=== PATIENT | female | born 1935 | race Caucasian/White ===

== ENCOUNTER 2017-07-26 14:45 | Emergency (ER) | payer MEDICARE, BC ==
[~2017-07-26] VITALS: Ht 165.1 cm; Wt 43.8 kg
[~2017-07-26 14:45] MED LIST: ACET325 PO; LEVO75TA3 PO; LORTA5 PO
[2017-07-26 14:54] VITALS: BP 178/86; PULSE 63; RESP 16; TEMP 97.5; O2SAT 97
--- NOTE | 2017-07-26 15:12 | PD ---
HPI Chief Complaint: Respiratory Symptoms Time Seen by Provider: 15:07 Travel History International Travel<30 days: No Contact w/Intl Traveler<30days: No Traveled to known affect area: No History of Present Illness HPI Patient presents accompanied by friends who report severe dementia. [facility] reported increased cough and hypoxia. Patient is poor historian. Positive sick contacts. Friends have little information. History of hypothyroidism and osteoporosis and hypertension. PFSH Past Medical History Cancer: No Cardiovascular Problems: No Diabetes: No Diminished Hearing: No Endocrine: No Genitourinary: No Hepatitis: No Hiatal Hernia: No Immune Disorder: No Musculoskeletal: No Neurologic: Yes ([place]) Psychiatric: No Reproductive: No Respiratory: No Thyroid Disease: Yes ?: Not Menopausal: Yes Past Surgical History Body Medical Devices: DENTAL IMPLANT Endocrine Surgery: Yes (THYROID REMOVED) Oral Surgery: Yes (TONSILLECTOMY) Pacemaker: No Thoracic Surgery: Yes (BREAST IMPLANTS AND REMOVAL) Tonsillectomy: Yes Social History Alcohol Use: No Tobacco Use: Yes (1 PPD) Substance Use: No Allergies-Medications (Allergen,Severity, Reaction): Coded Allergies: codeine (Unverified Allergy, Severe, NAUSEA, 07/26/17) aspirin (Verified Allergy, Unknown, 07/26/17) baclofen (Verified Allergy, Unknown, 07/26/17) Reported Meds & Prescriptions Reported Meds & Active Scripts Active Reported Memantine 5 Mg Tab 5 Mg PO DAILY Meloxicam 7.5 Mg Tab 7.5 Mg PO DAILY Levothyroxine (Levothyroxine Sodium) 75 Mcg Tab 75 Mcg PO DAILY Amlodipine (Amlodipine Besylate) 2.5 Mg Tab 2.5 Mg PO DAILY Alendronate (Alendronate Sodium) 70 Mg Tab 70 Mg PO Q7D Sertraline (Sertraline HCl) 25 Mg Tab 25 Mg PO DAILY Review of Systems ROS Limitations: Poor Historian General / Constitutional: No: Fever Eyes: No: Visual changes HENT: No: Headaches Cardiovascular: No: Chest Pain or Discomfort Respiratory: Positive: Cough Gastrointestinal: No: Abdominal Pain Genitourinary: No: Dysuria Musculoskeletal: No: Pain Skin: No Rash Neurologic: No: Weakness Psychiatric: No: Depression Endocrine: No: Polydipsia Hematologic/Lymphatic: No: Easy Bruising Physical Exam Narrative GENERAL: Well-nourished, well-developed patient. SKIN: Focused skin assessment warm/dry. HEAD: Normocephalic. EYES: No scleral icterus. No injection or drainage. NECK: Supple, trachea midline. No JVD or lymphadenopathy. CARDIOVASCULAR: Regular rate and rhythm without murmurs, gallops, or rubs. RESPIRATORY: Breath sounds in all garner but mildly decreased GASTROINTESTINAL: Abdomen soft, non-tender, nondistended. MUSCULOSKELETAL: No cyanosis, or edema. BACK: Nontender without obvious deformity. No CVA tenderness. Data Data Last Documented VS Vital Signs Date Time Temp Pulse Resp B/P (MAP) Pulse Ox O2 Delivery O2 Flow Rate FiO2 07/26/17 15:09 98 Room Air 07/26/17 14:54 97.5 63 16 178/86 (116) Orders Orders Complete Blood Count With Diff (07/26/17 15:07) Chest, Single Ap (07/26/17 ) Labs Laboratory Tests Test 07/26/17 15:14 White Blood Count 6.1 TH/MM3 Red Blood Count 4.21 MIL/MM3 Hemoglobin 12.8 GM/DL Hematocrit 38.5 % Mean Corpuscular Volume 91.5 FL Mean Corpuscular Hemoglobin 30.3 PG Mean Corpuscular Hemoglobin Concent 33.2 % Red Cell Distribution Width 13.2 % Platelet Count 185 TH/MM3 Mean Platelet Volume 7.2 FL Neutrophils (%) (Auto) 60.4 % Lymphocytes (%) (Auto) 29.5 % Monocytes (%) (Auto) 8.1 % Eosinophils (%) (Auto) 1.4 % Basophils (%) (Auto) 0.6 % Neutrophils # (Auto) 3.7 TH/MM3 Lymphocytes # (Auto) 1.8 TH/MM3 Monocytes # (Auto) 0.5 TH/MM3 Eosinophils # (Auto) 0.1 TH/MM3 Basophils # (Auto) 0.0 TH/MM3 CBC Comment DIFF FINAL Differential Comment MDM Medical Decision Making Medical Screen Exam Complete: Yes Emergency Medical Condition: Yes Differential Diagnosis Upper respiratory infection, cough, viral infection, pneumonia Narrative Course Assessment and plan discussed with friends at bedside. CBC within normal limits. Chest x-ray showed no acute cardiopulmonary process. Diagnosis Primary Impression: Cough Patient Instructions: General Instructions Additional Instructions: Rest fluids and Motrin, encouraged treatment of symptoms, follow-up with PCP, return to emergency with any onset of new symptoms. Med/Other Pt SpecificInfo: Prescription(s) given Scripts Benzonatate (Tessalon Perles) 100 Mg Cap 100 MG PO TID Y for COUGH for 10 Days, CAP 0 Refills Prov: Dirk Dai MD 07/26/17 Disposition: 07 AGAINST MEDICAL ADVICE Dirk Dai MD Jul 26, 2017 15:12
[2017-07-26 15:22] LABS: AUTOMATED NEUTROPHIL # 3.7 TH/MM3 (1.8-7.7); BASOPHIL % 0.6 % (0.0-2.0); EOSINOPHIL # 0.1 TH/MM3 (0-0.4); EOSINOPHIL % 1.4 % (0.0-4.0); HEMATOCRIT 38.5 % (35.0-46.0); HEMOGLOBIN 12.8 GM/DL (11.6-15.3); LYMPH % 29.5 % (9.0-44.0); LYMPHOCYTE # 1.8 TH/MM3 (1.0-4.8); MEAN CELL VOLUME 91.5 FL (80.0-100.0); MEAN CORPUSCULAR HEMOGLOBIN 30.3 PG (27.0-34.0); MEAN CORPUSCULAR HGB CONC 33.2 % (32.0-36.0); MEAN PLATELET VOLUME 7.2 FL (7.0-11.0); MONO % 8.1 % (0.0-8.0); MONOCYTE # 0.5 TH/MM3 (0-0.9); NEUT % 60.4 % (16.0-70.0); PLATELET COUNT 185 TH/MM3 (150-450); RED BLOOD COUNT 4.21 MIL/MM3 (4.00-5.30); RED CELL DISTRIBUTION WIDTH 13.2 % (11.6-17.2); WHITE BLOOD COUNT 6.1 TH/MM3 (4.0-11.0)
[2017-07-26] MEDS ORDERED: ALEN1TAB48 PO (15:30)
[2017-07-26] MEDS ORDERED: SERT25TA83 PO (15:30)
[2017-07-26] MEDS ORDERED: MELO7.5T27 PO (15:30)
[2017-07-26] MEDS ORDERED: AMLO2.5T PO (15:30)
[2017-07-26] MEDS ORDERED: MEMA1TAB PO (15:30)
[2017-07-26] MEDS ORDERED: LEVO75TA3 PO (15:30)
[2017-07-26 15:50] VITALS: BP 171/98; PULSE 63; RESP 20; O2SAT 97
--- NOTE | 2017-07-26 16:07 | RADRPT ---
EXAM DATE/TIME: 07/26/2017 15:15 [facility] COMPARISON: No previous studies available for comparison. INDICATIONS : Cough and shortness of breath. MEDICAL HISTORY : None. SURGICAL HISTORY : None. ENCOUNTER: Initial ACUITY: 4 - 6 days PAIN SCORE: 0/10 LOCATION: Left chest FINDINGS: The cardiac silhouette is enlarged in transverse diameter. Moderate scoliotic deformity is present to the left with a rotatory component with the apex at he 12. The background interstitium is prominent though this is likely chronic in nature. There is prominence of the aortic knob is with calcification characteristic of atherosclerotic vascular disease. The lungs are free of acute parenchymal opacity. No effusions are identified. CONCLUSION: 1. Cardiomegaly. No acute pulmonary disease. Brent Goff MD on July 26, 2017 at 16:05 Board Certified Radiologist. This report was verified electronically.
[2017-07-26] MEDS ORDERED: BENZ100 PO (16:15)
[2017-07-26] MEDS ORDERED: cloNIDine HCL 0.1 MG TAB PO ONE (16:30)
[2017-07-26 16:31] VITALS: BP 185/95; PULSE 63; RESP 18; O2SAT 98
[2017-07-26 17:09] VITALS: BP 165/83
== END 2017-07-26 17:10 | disposition left against medical advice (07) ==
LOC: PHED 14:45
DX: R05 Cough (principal); R09.02 Hypoxemia; F03.90 Unspecified dementia, unspecified severity, without behavioral disturbance, psychotic disturbance, mood disturbance, and anxiety; E03.9 Hypothyroidism, unspecified; I10 Essential (primary) hypertension; M81.0 Age-related osteoporosis without current pathological fracture; F17.200 Nicotine dependence, unspecified, uncomplicated
CPT/HCPCS: 71045; 85025; 99284

== ENCOUNTER 2017-10-04 11:45 | Emergency (ER) | payer MEDICARE, BC ==
[~2017-10-04] VITALS: Ht 152.4 cm; Wt 50.0 kg
[~2017-10-04 11:45] MED LIST changes: -ACET325 PO; +ALEN1TAB48 PO; +AMLO2.5T PO; +BENZ100 PO; -LORTA5 PO; +MELO7.5T27 PO; +MEMA1TAB PO; +SERT25TA83 PO
[2017-10-04 11:51] VITALS: BP 163/74; PULSE 69; RESP 21; TEMP 98.1
--- NOTE | 2017-10-04 11:56 | PD ---
HPI Chief Complaint: frequent falls Time Seen by Provider: 11:56 Travel History International Travel<30 days: No Contact w/Intl Traveler<30days: No Traveled to known affect area: No History of Present Illness HPI 81-year-old female with history of dementia, hypertension, presents to emergency department from her residential facility for evaluation of multiple falls over the last 2-3 days. They report that the patient's legs seem to be giving out. They noticed her left leg dragging today so they contacted [facility] who brought her to the emergency department. Patient reports absolutely no pain. She states that she is following a few times but not too many. Her family says that they've noticed more falling but have not noticed any deficit on the left. Falls of all the unwitnessed. There are no other symptoms reported this time. PFSH Past Medical History Cancer: No Cardiovascular Problems: No Diabetes: No Diminished Hearing: No Endocrine: No Genitourinary: No Hepatitis: No Hiatal Hernia: No Hypertension: Yes Immune Disorder: No Musculoskeletal: No Neurologic: Yes ([place]) Psychiatric: No Reproductive: No Respiratory: No Thyroid Disease: Yes Menopausal: Yes Past Surgical History Body Medical Devices: DENTAL IMPLANT Endocrine Surgery: Yes (THYROID REMOVED) Oral Surgery: Yes (TONSILLECTOMY) Pacemaker: No Thoracic Surgery: Yes (BREAST IMPLANTS AND REMOVAL) Tonsillectomy: Yes Other Surgery: Yes Social History Alcohol Use: No Tobacco Use: Yes (1 PPD) Substance Use: No Allergies-Medications (Allergen,Severity, Reaction): Coded Allergies: codeine (Unverified Allergy, Severe, NAUSEA, 10/04/17) aspirin (Verified Allergy, Unknown, 10/04/17) baclofen (Verified Allergy, Unknown, 10/04/17) Reported Meds & Prescriptions Reported Meds & Active Scripts Active Reported Tylenol (Acetaminophen) 325 Mg Tab 650 Mg PO Q6H PRN Omeprazole 20 Mg Tab 20 Mg PO DAILY PRN Donepezil 10 Mg Tab 10 Mg PO DAILY Memantine 5 Mg Tab 5 Mg PO DAILY Meloxicam 7.5 Mg Tab 7.5 Mg PO DAILY Levothyroxine (Levothyroxine Sodium) 75 Mcg Tab 75 Mcg PO DAILY Amlodipine (Amlodipine Besylate) 2.5 Mg Tab 2.5 Mg PO DAILY Alendronate (Alendronate Sodium) 70 Mg Tab 70 Mg PO Q7D Sertraline (Sertraline HCl) 25 Mg Tab 25 Mg PO DAILY Review of Systems Except as stated in HPI: all other systems reviewed are Neg Physical Exam Narrative GENERAL: Thin elderly female patient, sitting up in bed, pleasantly confused but in no acute distress. SKIN: Focused skin assessment warm/dry. HEAD: Atraumatic. Normocephalic. EYES: Pupils equal and round. No scleral icterus. No injection or drainage. ENT: No nasal bleeding or discharge. Mucous membranes pink and moist. NECK: Trachea midline. No JVD. CARDIOVASCULAR: Regular rate and rhythm. RESPIRATORY: No accessory muscle use. Clear to auscultation. Breath sounds equal bilaterally. GASTROINTESTINAL: Abdomen soft, non-tender, nondistended. Hepatic and splenic margins not palpable. MUSCULOSKELETAL: No obvious deformities. No clubbing. No cyanosis. No edema. NEUROLOGICAL: Awake and alert. No obvious cranial nerve deficits. Motor grossly within normal limits. Normal speech. No tenderness elicited palpation PSYCHIATRIC: Appropriate mood and affect; insight and judgment normal. Data Data Last Documented VS Vital Signs Date Time Temp Pulse Resp B/P (MAP) Pulse Ox O2 Delivery O2 Flow Rate FiO2 10/04/17 11:51 98.1 69 21 163/74 (103) Orders Orders Basic Metabolic Panel (Bmp) (10/04/17 11:56) Complete Blood Count With Diff (10/04/17 11:56) Prothrombin Time / Inr (Pt) (10/04/17 11:56) Act Partial Throm Time (Ptt) (10/04/17 11:56) Urinalysis - C+S If Indicated (10/04/17 11:56) Chest, Single Ap (10/04/17 11:56) Ct Brain W/O Iv Contrast(Rout) (10/04/17 11:56) Blood Glucose (10/04/17 11:56) Ecg Monitoring (10/04/17 11:56) Iv Access Insert/Monitor (10/04/17 11:56) Oximetry (10/04/17 11:56) Sodium Chloride 0.9% Flush (Ns Flush) (10/04/17 12:00) Sodium Chlorid 0.9% 500 Ml Inj (Ns 500 M (10/04/17 12:00) Orthostatic Vital Signs (10/04/17 11:56) Pelvis, Ap Only (Routine) (10/04/17 ) Ed Discharge Order (10/04/17 14:08) Labs Laboratory Tests Test 10/04/17 12:34 10/04/17 13:29 White Blood Count 9.6 TH/MM3 Red Blood Count 4.33 MIL/MM3 Hemoglobin 13.4 GM/DL Hematocrit 39.8 % Mean Corpuscular Volume 92.0 FL Mean Corpuscular Hemoglobin 30.9 PG Mean Corpuscular Hemoglobin Concent 33.6 % Red Cell Distribution Width 14.8 % Platelet Count 251 TH/MM3 Mean Platelet Volume 8.0 FL Neutrophils (%) (Auto) 82.8 % Lymphocytes (%) (Auto) 10.6 % Monocytes (%) (Auto) 6.0 % Eosinophils (%) (Auto) 0.2 % Basophils (%) (Auto) 0.4 % Neutrophils # (Auto) 7.9 TH/MM3 Lymphocytes # (Auto) 1.0 TH/MM3 Monocytes # (Auto) 0.6 TH/MM3 Eosinophils # (Auto) 0.0 TH/MM3 Basophils # (Auto) 0.0 TH/MM3 CBC Comment DIFF FINAL Differential Comment Prothrombin Time 10.4 SEC Prothromb Time International Ratio 1.0 RATIO Activated Partial Thromboplast Time 25.4 SEC Blood Urea Nitrogen 20 MG/DL Creatinine 0.88 MG/DL Random Glucose 95 MG/DL Calcium Level 8.4 MG/DL Sodium Level 140 MEQ/L Potassium Level 4.0 MEQ/L Chloride Level 106 MEQ/L Carbon Dioxide Level 26.9 MEQ/L Anion Gap 7 MEQ/L Estimat Glomerular Filtration Rate 62 ML/MIN Urine Color LIGHT-YELLOW Urine Turbidity CLEAR Urine pH 7.0 Urine Specific [place] 1.009 Urine Protein NEG mg/dL Urine Glucose (UA) NEG mg/dL Urine Ketones NEG mg/dL Urine Occult Blood NEG Urine Nitrite NEG Urine Bilirubin NEG Urine Urobilinogen LESS THAN 2.0 MG/DL Urine Leukocyte Esterase NEG Urine RBC 1 /hpf Microscopic Urinalysis Comment CATH-CULT NOT IND MDM Medical Decision Making Medical Screen Exam Complete: Yes Emergency Medical Condition: Yes Medical Record Reviewed: Yes Differential Diagnosis Electrolyte abnormality versus intracranial hemorrhage versus UTI versus ataxia Narrative Course 81-year-old female presents to emergency department for evaluation following multiple falls. Patient is very pleasant. She is oriented to self. She moves all extremities freely without any noted deficits. She reports no pain. Laboratory Tests Test 10/04/17 12:34 10/04/17 13:29 White Blood Count 9.6 TH/MM3 Red Blood Count 4.33 MIL/MM3 Hemoglobin 13.4 GM/DL Hematocrit 39.8 % Mean Corpuscular Volume 92.0 FL Mean Corpuscular Hemoglobin 30.9 PG Mean Corpuscular Hemoglobin Concent 33.6 % Red Cell Distribution Width 14.8 % Platelet Count 251 TH/MM3 Mean Platelet Volume 8.0 FL Neutrophils (%) (Auto) 82.8 % Lymphocytes (%) (Auto) 10.6 % Monocytes (%) (Auto) 6.0 % Eosinophils (%) (Auto) 0.2 % Basophils (%) (Auto) 0.4 % Neutrophils # (Auto) 7.9 TH/MM3 Lymphocytes # (Auto) 1.0 TH/MM3 Monocytes # (Auto) 0.6 TH/MM3 Eosinophils # (Auto) 0.0 TH/MM3 Basophils # (Auto) 0.0 TH/MM3 CBC Comment DIFF FINAL Differential Comment Prothrombin Time 10.4 SEC Prothromb Time International Ratio 1.0 RATIO Activated Partial Thromboplast Time 25.4 SEC Blood Urea Nitrogen 20 MG/DL Creatinine 0.88 MG/DL Random Glucose 95 MG/DL Calcium Level 8.4 MG/DL Sodium Level 140 MEQ/L Potassium Level 4.0 MEQ/L Chloride Level 106 MEQ/L Carbon Dioxide Level 26.9 MEQ/L Anion Gap 7 MEQ/L Estimat Glomerular Filtration Rate 62 ML/MIN Urine Color LIGHT-YELLOW Urine Turbidity CLEAR Urine pH 7.0 Urine Specific [place] 1.009 Urine Protein NEG mg/dL Urine Glucose (UA) NEG mg/dL Urine Ketones NEG mg/dL Urine Occult Blood NEG Urine Nitrite NEG Urine Bilirubin NEG Urine Urobilinogen LESS THAN 2.0 MG/DL Urine Leukocyte Esterase NEG Urine RBC 1 /hpf Microscopic Urinalysis Comment CATH-CULT NOT IND Last Impressions Head CT 10/04/17 1156 Signed Impressions: Service Date/Time: Wednesday, October 04, 2017 12:37 - CONCLUSION: 1. No acute intracranial abnormality identified. The examination is stable compared to prior dated 06/22/10. Jean Paul Schroeder MD Chest X-Ray 10/04/17 1156 Signed Impressions: Service Date/Time: Wednesday, October 04, 2017 13:17 - CONCLUSION: Cardiomegaly. Stable compared to previous dated 07/26/17. Jean Paul Schroeder MD Pelvis X-Ray 10/04/17 0000 Signed Impressions: Service Date/Time: Wednesday, October 04, 2017 13:14 - CONCLUSION: No fracture visualized. Isabela Lewis MD Findings are reviewed with my attending physician and the family. Patient be transported back to her residential facility. Diagnosis Primary Impression: Frequent falls Referrals: Primary Care Physician Patient Instructions: Fall Prevention for Older Adults (DC), General Instructions Additional Instructions: Walk with assistance only Follow-up with a primary care provider Maintain adequate oral hydration Return immediately with any acute worsening symptoms Med/Other Pt SpecificInfo: No Change to Meds Disposition: 01 DISCHARGE HOME Condition: Stable Marguerite Beasley Oct 04, 2017 11:56
[2017-10-04] MEDS ORDERED: SODIUM CHLORIDE 0.9% FLUSH 10 ML FLUSH IV FLUSH PRN (12:00)
[2017-10-04] MEDS ORDERED: SODIUM CHLORID 0.9% 500 ML INJ 500 ML IV ONE (12:00)
--- NOTE | 2017-10-04 12:55 | RADRPT ---
EXAM DATE/TIME: 10/04/2017 12:37 [facility] COMPARISON: CT BRAIN W/O CONTRAST, June 22, 2010, 13:54. INDICATIONS : Multiple falls, weakness. RADIATION DOSE: 56.35 CTDIvol (mGy) MEDICAL HISTORY : Hypertension. SURGICAL HISTORY : None. ENCOUNTER: Initial ACUITY: 1 day PAIN SCALE: 0/10 LOCATION: cranial TECHNIQUE: Multiple contiguous axial images were obtained of the head. Using automated exposure control and adj ustment of the mA and/or kV according to patient size, radiation dose was kept as low as reasonably a chievable to obtain optimal diagnostic quality images. DICOM format image data is available electro nically for review and comparison. FINDINGS: CEREBRUM: The ventricles are normal for age. No evidence of midline shift, mass lesion, hemorrhage or acute in farction. No extra-axial fluid collections are seen. POSTERIOR FOSSA: The cerebellum and brainstem are intact. The 4th ventricle is midline. The cerebellopontine angle i s unremarkable. EXTRACRANIAL: The visualized portion of the orbits is intact. SKULL: The calvaria is intact. No evidence of skull fracture. CONCLUSION: 1. No acute intracranial abnormality identified. The examination is stable compared to prior dated . Jean Paul Schroeder MD on October 04, 2017 at 12:51 Board Certified Radiologist. This report was verified electronically.
[2017-10-04 13:04] LABS: AUTOMATED NEUTROPHIL # 7.9 TH/MM3 (1.8-7.7); BASOPHIL % 0.4 % (0.0-2.0); EOSINOPHIL % 0.2 % (0.0-4.0); HEMATOCRIT 39.8 % (35.0-46.0); HEMOGLOBIN 13.4 GM/DL (11.6-15.3); LYMPH % 10.6 % (9.0-44.0); MEAN CORPUSCULAR HEMOGLOBIN 30.9 PG (27.0-34.0); MEAN CORPUSCULAR HGB CONC 33.6 % (32.0-36.0); MONOCYTE # 0.6 TH/MM3 (0-0.9); NEUT % 82.8 % (16.0-70.0); PLATELET COUNT 251 TH/MM3 (150-450); RED BLOOD COUNT 4.33 MIL/MM3 (4.00-5.30); RED CELL DISTRIBUTION WIDTH 14.8 % (11.6-17.2); WHITE BLOOD COUNT 9.6 TH/MM3 (4.0-11.0)
[2017-10-04] MEDS ORDERED: TYLE325T PO (13:08)
[2017-10-04] MEDS ORDERED: OMEP20TA93 PO (13:08)
[2017-10-04] MEDS ORDERED: DONE10TA7 PO (13:08)
[2017-10-04 13:14] LABS: PROTHROMBIN TIME - PATIENT 10.4 SEC (9.8-11.6)
[2017-10-04 13:18] LABS: BICARBONATE 26.9 MEQ/L (21.0-32.0); CALCIUM 8.4 MG/DL (8.5-10.1); CREATININE 0.88 MG/DL (0.50-1.00)
--- NOTE | 2017-10-04 13:28 | RADRPT ---
EXAM DATE/TIME: 10/04/2017 13:17 [facility] COMPARISON: CHEST SINGLE AP, July 26, 2017, 15:15. INDICATIONS : Syncopal episode MEDICAL HISTORY : Hypertension. SURGICAL HISTORY : None. ENCOUNTER: Initial ACUITY: Acute PAIN SCORE: 0/10 LOCATION: chest FINDINGS: The lungs are clear. The heart is enlarged. There are scoliotic changes within the thoracic spine. Th ere degenerative changes within the shoulders bilaterally. CONCLUSION: Cardiomegaly. Stable compared to previous dated 07/26/17. Jean Paul Schroeder MD on October 04, 2017 at 13:25 Board Certified Radiologist. This report was verified electronically.
--- NOTE | 2017-10-04 13:32 | RADRPT ---
EXAM DATE/TIME: 10/04/2017 13:14 [facility] COMPARISON: No previous studies available for comparison. INDICATIONS : Pelvic pain post fall MEDICAL HISTORY : Hypertension. SURGICAL HISTORY : None. ENCOUNTER: Initial ACUITY: 1 day PAIN SCORE: 4/10 LOCATION: pelvis FINDINGS: A single frontal view of the pelvis demonstrates no evidence of fracture. The bony pelvic ring is in tact. Bony mineralization is normal. Degenerative changes seen within the lumbar spine. The soft ti ssues are intact. CONCLUSION: No fracture visualized. Isabela Lewis MD on October 04, 2017 at 13:29 Board Certified Radiologist. This report was verified electronically.
[2017-10-04 13:46] LABS: BILIRUBIN, URINE NEG (NEG); BLOOD, URINE NEG (NEG); GLUCOSE,URINE NEG (NEG); KETONE, URINE NEG (NEG); NITRITE,URINE NEG (NEG); URINE COLOR LIGHT-YELLOW (YELLW/STRAW); URINE LEUKOCYTE ESTERASE NEG (NEG)
== END 2017-10-04 16:01 | disposition home or self-care (01) ==
LOC: NEPE 11:45
DX: Z91.81 History of falling (principal); I51.7 Cardiomegaly; F03.90 Unspecified dementia, unspecified severity, without behavioral disturbance, psychotic disturbance, mood disturbance, and anxiety; I10 Essential (primary) hypertension; G24.9 Dystonia, unspecified; E07.9 Disorder of thyroid, unspecified; F17.200 Nicotine dependence, unspecified, uncomplicated; Z79.899 Other long term (current) drug therapy; Z88.5 Allergy status to narcotic agent
CPT/HCPCS: 70450; 71045; 72170; 80048; 81001; 85025; 85610; 85730; 96360; 99285; J7040

== ENCOUNTER 2017-11-13 06:10 | Inpatient (IN) | payer MEDICARE, BC ==
[~2017-11-13] VITALS: Ht 152.4 cm; Wt 53.4 kg
[2017-11-13] VITALS (8 sets, daily range): BP systolic 135–166; BP diastolic 70–93; PULSE 56–72; RESP 16–18; TEMP 98.4–99; O2SAT 94–99
[~2017-11-13 06:10] MED LIST changes: -BENZ100 PO; +DONE10TA7 PO; +OMEP20TA93 PO; +TYLE325T PO
[2017-11-13] MEDS ORDERED: SODIUM CHLORIDE 0.9% FLUSH 10 ML FLUSH IVF PRN (06:30)
[2017-11-13] MEDS ORDERED: MORPHINE SULFATE 4 MG/ML INJ IV PUSH ONE (06:30)
[2017-11-13] MEDS ORDERED: ONDANSETRON HCL 4 MG/2 ML VIAL IVP ONE (06:30)
--- NOTE | 2017-11-13 06:32 | PD ---
HPI Chief Complaint: Fall Time Seen by Provider: 06:18 Travel History International Travel<30 days: No Contact w/Intl Traveler<30days: No Traveled to known affect area: No History of Present Illness HPI The patient is a 82-year-old female who presents to the emergency department via EMS from a [facility] in [place], [place], after she was found on the floor. The patient apparently was found on the floor with a mattress on top of her according to EMS. The patient was noted to have a hematoma to the right side of the head as well as bruising to the right hip. The patient is normally ambulatory with a walker according to nursing staff, the patient is a limited historian with a history of dementia. The patient denies any headache, does complain of right hip pain with movement. She denies any previous injuries to the right hip. She denies any headache, neck pain, chest pain, shortness of breath, nausea, vomiting, or abdominal pain. She does note limited range of motion of the right hip secondary to pain. Symptoms are moderate. PFSH Past Medical History Alzheimer's Disease: Yes Cancer: No Cardiovascular Problems: No Diabetes: No Diminished Hearing: No Endocrine: No Gastrointestinal Disorders: Yes (esophogeal obstruction) Genitourinary: Yes Hepatitis: No Hiatal Hernia: No Hypertension: Yes Immune Disorder: No Implanted Vascular Access Dvce: Yes Medical other: Yes (FALLS) Musculoskeletal: No Neurologic: Yes ([place]) Psychiatric: No Reproductive: No Respiratory: No Thyroid Disease: Yes Menopausal: Yes Past Surgical History Body Medical Devices: DENTAL IMPLANT Endocrine Surgery: Yes (THYROID REMOVED) Oral Surgery: Yes (TONSILLECTOMY) Pacemaker: No Thoracic Surgery: Yes (BREAST IMPLANTS AND REMOVAL) Tonsillectomy: Yes Other Surgery: Yes Social History Alcohol Use: No Tobacco Use: No Substance Use: No Allergies-Medications (Allergen,Severity, Reaction): Coded Allergies: codeine (Unverified Allergy, Severe, NAUSEA, 11/13/17) aspirin (Verified Allergy, Unknown, 11/13/17) baclofen (Verified Allergy, Unknown, 11/13/17) Reported Meds & Prescriptions Reported Meds & Active Scripts Active Reported Tylenol (Acetaminophen) 325 Mg Tab 650 Mg PO Q6H PRN Omeprazole 20 Mg Tab 20 Mg PO DAILY PRN Donepezil 10 Mg Tab 10 Mg PO DAILY Memantine 5 Mg Tab 5 Mg PO DAILY Meloxicam 7.5 Mg Tab 7.5 Mg PO DAILY Levothyroxine (Levothyroxine Sodium) 75 Mcg Tab 75 Mcg PO DAILY Amlodipine (Amlodipine Besylate) 2.5 Mg Tab 2.5 Mg PO DAILY Alendronate (Alendronate Sodium) 70 Mg Tab 70 Mg PO Q7D Sertraline (Sertraline HCl) 25 Mg Tab 25 Mg PO DAILY Review of Systems ROS Limitations: Poor Historian, Other: (History of dementia) Except as stated in HPI: all other systems reviewed are Neg HENT: No: Headaches, Neck Pain Cardiovascular: No: Chest Pain or Discomfort Respiratory: No: Shortness of Breath Gastrointestinal: No: Nausea, Vomiting, Abdominal Pain Musculoskeletal: Positive: Limited ROM, Pain Neurologic: No: Paresthesia, Sensory Disturbance Physical Exam Exam Limitations: Poor Historian Narrative GENERAL: Awake, alert, pleasant 82-year-old female who appears her stated age and is in no acute respiratory distress. SKIN: Focused skin assessment warm/dry. HEAD: Hematoma noted to the right forehead. EYES: Pupils equal and round. 2 mm bilateral and reactive. ENT: No nasal bleeding or discharge. Upper dentures in place. Slightly dry mucous membranes. NECK: Trachea midline. No JVD. CARDIOVASCULAR: Regular rate and rhythm. No murmur appreciated. RESPIRATORY: No accessory muscle use. Clear to auscultation. Breath sounds equal bilaterally. GASTROINTESTINAL: Abdomen soft, non-tender, nondistended. No rebound tenderness. Back: No tenderness over the thoracic or lumbar vertebrae. No visible sacral decubitus ulcers. MUSCULOSKELETAL: The patient has her right hip flexed and right knee flexed at 90. She will not extend the right hip. She does have ecchymosis over the lateral right hip with tenderness upon palpation. Positive dorsalis pedal pulse. NEUROLOGICAL: Awake and alert. No obvious cranial nerve deficits. Motor grossly within normal limits. Normal speech. Patient is oriented to name and location but not the current month, year, or foxpro developer. Patient does follow simple commands. PSYCHIATRIC: Appropriate mood and affect; insight and judgment normal. Data Data Last Documented VS Vital Signs Date Time Temp Pulse Resp B/P (MAP) Pulse Ox O2 Delivery O2 Flow Rate FiO2 11/13/17 11:20 64 18 151/72 (98) 94 Nasal Cannula 2.00 11/13/17 06:16 98.4 Orders Orders Electrocardiogram (11/13/17 06:26) Complete Blood Count With Diff (11/13/17 06:26) Comprehensive Metabolic Panel (11/13/17 06:26) Prothrombin Time / Inr (Pt) (11/13/17 06:26) Act Partial Throm Time (Ptt) (11/13/17 06:26) Urinalysis - C+S If Indicated (11/13/17 06:26) Type And Screen (11/13/17 06:26) Chest, Single Ap (11/13/17 06:26) Hip, Uni(Ap&Lat) W Ap Pelvis (11/13/17 06:26) Iv Access Insert/Monitor (11/13/17 06:26) Oximetry (11/13/17:) Ice/Cold Pack (11/13/17:26) Ecg Monitoring (11/13/17 06:26) Morphine Inj (Morphine Inj) (11/13/17 06:30) Ondansetron Inj (Zofran Inj) (11/13/17 06:30) Sodium Chloride 0.9% Flush (Ns Flush) (11/13/17 06:30) Ct Brain W/O Iv Contrast(Rout) (11/13/17 ) Creatine Kinase (Cpk) (11/13/17 06:26) Ct Pelvis W/O Iv Contrast (11/13/17 ) Ed Discharge Order (11/13/17 12:01) Admit To Inpatient (11/13/17 ) Code Status (11/13/17 13:31) Vital Signs (Adult) Q4H (11/13/17 13:31) Activity Oob With Assistance (11/13/17 13:31) Diet Regular Basic (11/13/17 Lunch) Sodium Chloride 0.9% Flush (Ns Flush) (11/13/17 13:45) Sodium Chloride 0.9% Flush (Ns Flush) (11/13/17 21:00) Acetaminophen (Tylenol) (11/13/17 15:00) Ondansetron Inj (Zofran Inj) (11/13/17 15:00) Comprehensive Metabolic Panel (11/14/17 06:00) Complete Blood Count With Diff (11/14/17 06:00) Case Management Consult (11/13/17 13:31) Scd Bilateral/Knee High SUZE.BID (11/13/17 13:31) Acetaminophen (Tylenol) (11/13/17 13:45) Naloxone Inj (Narcan Inj) (11/13/17 13:45) Magnesium Hydroxide Liq (Milk Of Magnesi (11/13/17 21:00) Inpatient Certification (11/13/17 ) Amlodipine (Norvasc) (11/14/17 09:00) Donepezil (Aricept) (11/14/17 09:00) Levothyroxine (Synthroid) (11/14/17 06:00) Memantine (Namenda) (11/14/17 09:00) Sertraline (Zoloft) (11/14/17 09:00) Admit Order (Ed Use Only) (11/13/17 14:09) Pantoprazole (Protonix) (11/14/17 09:00) Labs Laboratory Tests Test 11/13/17 06:20 11/13/17 08:38 White Blood Count 11.2 TH/MM3 Red Blood Count 4.03 MIL/MM3 Hemoglobin 12.8 GM/DL Hematocrit 37.3 % Mean Corpuscular Volume 92.6 FL Mean Corpuscular Hemoglobin 31.7 PG Mean Corpuscular Hemoglobin Concent 34.3 % Red Cell Distribution Width 15.0 % Platelet Count 244 TH/MM3 Mean Platelet Volume 8.1 FL Neutrophils (%) (Auto) 88.0 % Lymphocytes (%) (Auto) 7.4 % Monocytes (%) (Auto) 3.9 % Eosinophils (%) (Auto) 0.2 % Basophils (%) (Auto) 0.5 % Neutrophils # (Auto) 9.8 TH/MM3 Lymphocytes # (Auto) 0.8 TH/MM3 Monocytes # (Auto) 0.4 TH/MM3 Eosinophils # (Auto) 0.0 TH/MM3 Basophils # (Auto) 0.1 TH/MM3 CBC Comment DIFF FINAL Differential Comment Prothrombin Time 10.8 SEC Prothromb Time International Ratio 1.1 RATIO Activated Partial Thromboplast Time 26.5 SEC Blood Urea Nitrogen 16 MG/DL Creatinine 0.77 MG/DL Random Glucose 125 MG/DL Total Protein 7.3 GM/DL Albumin 3.6 GM/DL Calcium Level 9.0 MG/DL Alkaline Phosphatase 139 U/L Aspartate Amino Transf (AST/SGOT) 24 U/L Alanine Aminotransferase (ALT/SGPT) 23 U/L Total Bilirubin 0.9 MG/DL Sodium Level 140 MEQ/L Potassium Level 3.6 MEQ/L Chloride Level 106 MEQ/L Carbon Dioxide Level 26.0 MEQ/L Anion Gap 8 MEQ/L Estimat Glomerular Filtration Rate 72 ML/MIN Total Creatine Kinase 146 U/L Urine Color YELLOW Urine Turbidity CLEAR Urine pH 6.0 Urine Specific [place] 1.018 Urine Protein TRACE mg/dL Urine Glucose (UA) NEG mg/dL Urine Ketones NEG mg/dL Urine Occult Blood TRACE Urine Nitrite NEG Urine Bilirubin NEG Urine Urobilinogen LESS THAN 2.0 MG/DL Urine Leukocyte Esterase NEG Urine RBC 10 /hpf Urine WBC 1 /hpf Urine Squamous Epithelial Cells <1 /hpf Urine Mucus FEW /lpf Microscopic Urinalysis Comment CATH-CULT NOT IND MDM Medical Decision Making Medical Screen Exam Complete: Yes Emergency Medical Condition: Yes Medical Record Reviewed: Yes Differential Diagnosis Differential diagnosis includes fracture, dislocation, hematoma, contusion, intracranial hemorrhage, mechanical fall, rhabdomyolysis, dehydration, hyponatremia. Narrative Course IV was established, labs are drawn and sent, the patient was placed on cardiac telemetry monitoring and continuous pulse oximetry monitoring. The patient was administered morphine and Zofran. X-ray of the chest, pelvis, and right hip were obtained. CT of the brain was obtained. The patient was signed out to the oncoming physician at 7 AM. Diagnosis Primary Impression: Closed avulsion fracture of greater trochanter of right femur Qualified Codes: S72.111A - Displaced fracture of greater trochanter of right femur, initial encounter for closed fracture Additional Impression: Closed head injury Qualified Codes: S09.90XA - Unspecified injury of head, initial encounter Condition: Stable Davis Montes MD Nov 13, 2017 06:32
[2017-11-13 06:55] LABS: AUTOMATED NEUTROPHIL # 9.8 TH/MM3 (1.8-7.7); BASOPHIL # 0.1 TH/MM3 (0-0.2); BASOPHIL % 0.5 % (0.0-2.0); EOSINOPHIL % 0.2 % (0.0-4.0); HEMATOCRIT 37.3 % (35.0-46.0); HEMOGLOBIN 12.8 GM/DL (11.6-15.3); LYMPH % 7.4 % (9.0-44.0); LYMPHOCYTE # 0.8 TH/MM3 (1.0-4.8); MEAN CELL VOLUME 92.6 FL (80.0-100.0); MEAN CORPUSCULAR HEMOGLOBIN 31.7 PG (27.0-34.0); MEAN CORPUSCULAR HGB CONC 34.3 % (32.0-36.0); MEAN PLATELET VOLUME 8.1 FL (7.0-11.0); MONO % 3.9 % (0.0-8.0); MONOCYTE # 0.4 TH/MM3 (0-0.9); PLATELET COUNT 244 TH/MM3 (150-450); RED BLOOD COUNT 4.03 MIL/MM3 (4.00-5.30); WHITE BLOOD COUNT 11.2 TH/MM3 (4.0-11.0)
--- NOTE | 2017-11-13 06:56 | RADRPT ---
EXAM DATE/TIME: 11/13/2017 06:41 [facility] COMPARISON: CHEST SINGLE AP, October 04, 2017, 13:17. INDICATIONS : Fall. MEDICAL HISTORY : Hypertension. SURGICAL HISTORY : None. ENCOUNTER: Initial ACUITY: 1 day PAIN SCORE: 0/10 LOCATION: Bilateral chest FINDINGS: A single view of the chest demonstrates subtle interstitial densities. Heart borderline enlarged. No pleural effusions. Degenerative changes of each shoulder.. Osseous structures are intact. Scoliosis and degenerative changes thoracic spine. CONCLUSION: Subtle interstitial densities likely chronic. Esa Clemente MD on November 13, 2017 at 6:54 Board Certified Radiologist. This report was verified electronically.
--- NOTE | 2017-11-13 06:57 | RADRPT ---
EXAM DATE/TIME: 11/13/2017 06:41 [facility] COMPARISON: No previous studies available for comparison. INDICATIONS : Right hip pain from a possible fall. MEDICAL HISTORY : Hypertension. SURGICAL HISTORY : None. ENCOUNTER: Initial ACUITY: 1 day PAIN SCORE: 8/10 LOCATION: Right hip FINDINGS: Examination of the right hip was performed with AP Pelvis. The primary and secondary trabecular germán alli of the femoral neck is intact. Mild osteoarthritis of the right hip without fracture. The acetab ulum is grossly intact. CONCLUSION: Mild osteoarthritis without fracture. Esa Clemente MD on November 13, 2017 at 6:55 Board Certified Radiologist. This report was verified electronically.
[2017-11-13 07:04] LABS: INTERNATIONAL NORMALIZED RATIO 1.1 RATIO; PROTHROMBIN TIME - PATIENT 10.8 SEC (9.8-11.6)
[2017-11-13 07:13] LABS: ALBUMIN 3.6 GM/DL (3.4-5.0); ALT (GPT) 23 U/L (10-53); AST (GOT) 24 U/L (15-37); BLOOD UREA NITROGEN 16 MG/DL (7-18); CHLORIDE 106 MEQ/L (98-107); CREATININE 0.77 MG/DL (0.50-1.00); GLOMERULAR FILTRATION RATE 72 ML/MIN (>89); GLUCOSE,RANDOM 125 MG/DL (74-106); SODIUM (NA) 140 MEQ/L (136-145)
[2017-11-13 07:16] LABS: ALKALINE PHOSPHATASE 139 U/L (45-117); TOTAL BILIRUBIN ADULT 0.9 MG/DL (0.2-1.0); TOTAL PROTEIN 7.3 GM/DL (6.4-8.2)
--- NOTE | 2017-11-13 07:43 | RADRPT ---
EXAM DATE/TIME: 11/13/2017 07:18 [facility] COMPARISON: CT BRAIN W/O CONTRAST, October 04, 2017, 12:37. INDICATIONS : Fall. RADIATION DOSE: 56.35 CTDIvol (mGy) MEDICAL HISTORY : Alzheimer's Hypertension. SURGICAL HISTORY : None. ENCOUNTER: Initial ACUITY: 1 day PAIN SCALE: 0/10 LOCATION: cranial TECHNIQUE: Multiple contiguous axial images were obtained of the head. Using automated exposure control and adj ustment of the mA and/or kV according to patient size, radiation dose was kept as low as reasonably a chievable to obtain optimal diagnostic quality images. DICOM format image data is available electro nically for review and comparison. FINDINGS: CEREBRUM: There is moderate generalized atrophy, stable from the prior study. Moderate severity periventricular white matter low attenuation remains present. The ventricles are prominent but within the range expe cted given the degree of atrophy present. No evidence of midline shift, mass lesion, hemorrhage or a cute infarction. No extra-axial fluid collections are seen. POSTERIOR FOSSA: The cerebellum and brainstem demonstrate no acute finding. The 4th ventricle is midline. The cerebe llopontine angle is unremarkable. EXTRACRANIAL: Visualized sinuses are clear. SKULL: The calvaria is intact. No evidence of skull fracture. CONCLUSION: 1. Stable noncontrast head CT. No acute intracranial abnormality is identified. 2. Stable chronic findings include generalized atrophy and chronic periventricular white matter low d ensity characteristic of chronic microvascular ischemia. Carlos Gaytan MD on November 13, 2017 at 7:39 Board Certified Radiologist. This report was verified electronically.
--- NOTE | 2017-11-13 08:40 | RADRPT ---
EXAM DATE/TIME: 11/13/2017 07:18 [facility] COMPARISON: HIP RIGHT (AP&LAT 2/3VWS) W AP PELVIS, November 13, 2017, 6:41. INDICATIONS : Fall. Pelvic pain. ORAL CONTRAST: No oral contrast ingested. RADIATION DOSE: 10.65 CTDIvol (mGy) MEDICAL HISTORY : Alzheimer's Hypertension. SURGICAL HISTORY : None. ENCOUNTER: Initial ACUITY: 1 day PAIN SCALE: 5/10 LOCATION: Bilateral pelvis TECHNIQUE: Volumetric scanning of the pelvis was performed. Using automated exposure control and adjustment of the mA and/or kV according to patient size, radiation dose was kept as low as reasonably achievable t o obtain optimal diagnostic quality images. DICOM format image data is available electronically for review and comparison. FINDINGS: There is an acute fracture involving the greater trochanter of the right proximal femur. There is a s mall focal disc bulge extending into the right neural foramen at L5-S1 which likely impinges upon the exiting right L5 nerve root. There is mild aneurysmal dilatation of the distal abdominal aorta which measures 2.7 cm AP by 2.6 cm transverse. Uncomplicated sigmoid diverticulosis is noted there is no a cute diverticulitis. The urinary bladder is unremarkable. No significant lymphadenopathy is noted. No ascites is noted. Degenerative changes and scoliosis of the lower lumbar spine are noted. CONCLUSION: 1. Acute fracture involving the greater trochanter of the right proximal femur. 2. Small focal disc bulge extending in the right neural foramen at L5-S1 which likely impinges upon t he exiting right L5 nerve root. Clinical correlation is recommended to rule out right L5 radiculopath y. 3. Mild aneurysmal dilatation of the distal abdominal aorta measuring 2.7 x 2.6 cm. 4. Uncomplicated sigmoid diverticulosis. 5. Degenerative changes and scoliosis of lower lumbar spine. Yosi Tsang MD on November 13, 2017 at 8:26 Board Certified Radiologist. This report was verified electronically.
[2017-11-13 08:52] LABS: BILIRUBIN, URINE NEG (NEG); BLOOD, URINE TRACE (NEG); GLUCOSE,URINE NEG (NEG); KETONE, URINE NEG (NEG); MUCUS URINE FEW /lpf (OCC); NITRITE,URINE NEG (NEG); SQUAMOUS EPITHELIAL CELL URINE <1 /hpf (0-5); URINE COLOR YELLOW (YELLW/STRAW); URINE LEUKOCYTE ESTERASE NEG (NEG)
--- NOTE | 2017-11-13 11:55 | PD ---
Physical Exam Date Seen by Provider: Nov 13, 2017 Time Seen by Provider: 07:00 Narrative Female who was signed out to me at change of shift by Dr. Montes. [facility] and has a history of dementia and was apparently found under her mattress with a bruised her head and right hip pain. The patient had no obvious fracture on plain x-ray of her hip however concern was that it could still be an occult fracture and a CT scan was ordered to rule out an occult fracture. That was pending at change of shift. Data Data Last Documented VS Vital Signs Date Time Temp Pulse Resp B/P (MAP) Pulse Ox O2 Delivery O2 Flow Rate FiO2 11/13/17 11:20 64 18 151/72 (98) 94 Nasal Cannula 2.00 11/13/17 06:16 98.4 Orders Orders Electrocardiogram (11/13/17 06:26) Complete Blood Count With Diff (11/13/17 06:26) Comprehensive Metabolic Panel (11/13/17 06:26) Prothrombin Time / Inr (Pt) (11/13/17:26) Act Partial Throm Time (Ptt) (11/13/17:26) Urinalysis - C+S If Indicated (11/13/17 06:26) Type And Screen (11/13/17 06:26) Chest, Single Ap (11/13/17:26) Hip, Uni(Ap&Lat) W Ap Pelvis (11/13/17 06:26) Iv Access Insert/Monitor (11/13/17 06:26) Oximetry (11/13/17 06:26) Ice/Cold Pack (11/13/17:26) Ecg Monitoring (11/13/17:26) Morphine Inj (Morphine Inj) (11/13/17 06:30) Ondansetron Inj (Zofran Inj) (11/13/17 06:30) Sodium Chloride 0.9% Flush (Ns Flush) (11/13/17 06:30) Ct Brain W/O Iv Contrast(Rout) (11/13/17 ) Creatine Kinase (Cpk) (11/13/17 06:26) Ct Pelvis W/O Iv Contrast (11/13/17 ) Labs Laboratory Tests Test 11/13/17 06:20 11/13/17 08:38 White Blood Count 11.2 TH/MM3 Red Blood Count 4.03 MIL/MM3 Hemoglobin 12.8 GM/DL Hematocrit 37.3 % Mean Corpuscular Volume 92.6 FL Mean Corpuscular Hemoglobin 31.7 PG Mean Corpuscular Hemoglobin Concent 34.3 % Red Cell Distribution Width 15.0 % Platelet Count 244 TH/MM3 Mean Platelet Volume 8.1 FL Neutrophils (%) (Auto) 88.0 % Lymphocytes (%) (Auto) 7.4 % Monocytes (%) (Auto) 3.9 % Eosinophils (%) (Auto) 0.2 % Basophils (%) (Auto) 0.5 % Neutrophils # (Auto) 9.8 TH/MM3 Lymphocytes # (Auto) 0.8 TH/MM3 Monocytes # (Auto) 0.4 TH/MM3 Eosinophils # (Auto) 0.0 TH/MM3 Basophils # (Auto) 0.1 TH/MM3 CBC Comment DIFF FINAL Differential Comment Prothrombin Time 10.8 SEC Prothromb Time International Ratio 1.1 RATIO Activated Partial Thromboplast Time 26.5 SEC Blood Urea Nitrogen 16 MG/DL Creatinine 0.77 MG/DL Random Glucose 125 MG/DL Total Protein 7.3 GM/DL Albumin 3.6 GM/DL Calcium Level 9.0 MG/DL Alkaline Phosphatase 139 U/L Aspartate Amino Transf (AST/SGOT) 24 U/L Alanine Aminotransferase (ALT/SGPT) 23 U/L Total Bilirubin 0.9 MG/DL Sodium Level 140 MEQ/L Potassium Level 3.6 MEQ/L Chloride Level 106 MEQ/L Carbon Dioxide Level 26.0 MEQ/L Anion Gap 8 MEQ/L Estimat Glomerular Filtration Rate 72 ML/MIN Total Creatine Kinase 146 U/L Urine Color YELLOW Urine Turbidity CLEAR Urine pH 6.0 Urine Specific [place] 1.018 Urine Protein TRACE mg/dL Urine Glucose (UA) NEG mg/dL Urine Ketones NEG mg/dL Urine Occult Blood TRACE Urine Nitrite NEG Urine Bilirubin NEG Urine Urobilinogen LESS THAN 2.0 MG/DL Urine Leukocyte Esterase NEG Urine RBC 10 /hpf Urine WBC 1 /hpf Urine Squamous Epithelial Cells <1 /hpf Urine Mucus FEW /lpf Microscopic Urinalysis Comment CATH-CULT NOT IND MDM Medical Record Reviewed: Yes Supervised Visit with EVIE: No Differential Diagnosis Hip fracture versus UTI versus intracranial injury Narrative Course 82-year-old with a history of dementia found in [facility]. Patient had a bruise to her forehead. Patient also had pain in her right hip. X-ray showed no obvious fracture and a CT was ordered to rule out occult fracture. There is a avulsion fracture of the right greater trochanter with no evidence of unstable fracture. CT brain is negative for acute process. Urinalysis shows no evidence of UTI. She will be [facility] back to the [facility]. Diagnosis Primary Impression: Closed avulsion fracture of greater trochanter of right femur Additional Impression: Closed head injury Additional Instruction: Ice to right hip 2-3 times daily 2 days then moist heat. Follow-up with orthopedic as an outpatient. Disposition: 01 DISCHARGE HOME Condition: Stable Bart Jeronimo MD Nov 13, 2017 11:55
--- NOTE | 2017-11-13 13:34 | HHI.HP ---
[facility] Service [facility] Primary Care Physician Unknown Admission Diagnosis Diagnoses: (1) Closed avulsion fracture of greater trochanter of right femur (2) Closed head injury Chief Complaint: AMS Travel History International Travel<30 Days: No Contact w/Intl Traveler <30 Da: No Traveled to Known Affected Are: No History of Present Illness Due to patient dementia, although pleasantly confused, she is unable to provide any history, therefore the history is obtained from the EMR review below: "The patient is a 82-year-old female who presents to the emergency department via EMS from a retirement in [place], [place], after she was found on the floor. The patient apparently was found on the floor with a mattress on top of her according to EMS. The patient was noted to have a hematoma to the right side of the head as well as bruising to the right hip. The patient is normally ambulatory with a walker according to nursing staff, the patient is a limited historian with a history of dementia. The patient denies any headache, does complain of right hip pain with movement. She denies any previous injuries to the right hip. She denies any headache, neck pain, chest pain, shortness of breath, nausea, vomiting, or abdominal pain. She does note limited range of motion of the right hip secondary to pain. Symptoms are moderate." Review of Systems ROS Limitations: Altered Mental Status, Poor Historian Past Family Social History Past Medical History Alzheimer's Disease: Yes Gastrointestinal Disorders: Yes (esophogeal obstruction) Genitourinary: Yes Hypertension: Yes Implanted Vascular Access Dvce: Yes Medical other: Yes (FALLS) Neurologic: Yes (DYSTONIA) Thyroid Disease: Yes Past Surgical History Body Medical Devices: DENTAL IMPLANT Endocrine Surgery: Yes (THYROID REMOVED) Oral Surgery: Yes (TONSILLECTOMY) Pacemaker: No Thoracic Surgery: Yes (BREAST IMPLANTS AND REMOVAL) Tonsillectomy: Yes Other Surgery: Yes Reported Medications Tylenol (Acetaminophen) 325 Mg Tab 650 Mg PO Q6H PRN Omeprazole 20 Mg Tab 20 Mg PO DAILY PRN Donepezil 10 Mg Tab 10 Mg PO DAILY Memantine 5 Mg Tab 5 Mg PO DAILY Meloxicam 7.5 Mg Tab 7.5 Mg PO DAILY Levothyroxine (Levothyroxine Sodium) 75 Mcg Tab 75 Mcg PO DAILY Amlodipine (Amlodipine Besylate) 2.5 Mg Tab 2.5 Mg PO DAILY Alendronate (Alendronate Sodium) 70 Mg Tab 70 Mg PO Q7D Sertraline (Sertraline HCl) 25 Mg Tab 25 Mg PO DAILY Allergies: Coded Allergies: codeine (Unverified Allergy, Severe, NAUSEA, 11/13/17) aspirin (Verified Allergy, Unknown, 11/13/17) baclofen (Verified Allergy, Unknown, 11/13/17) Family History Due to patient's advanced age, family history is un relevant at this time Social History Alcohol Use: No Tobacco Use: No Substance Use: No Physical Exam Vital Signs Vital Signs Date Time Temp Pulse Resp B/P (MAP) Pulse Ox O2 Delivery O2 Flow Rate FiO2 11/13/17 11:20 64 18 151/72 (98) 94 Nasal Cannula 2.00 11/13/17 10:10 56 18 166/82 (110) 96 Nasal Cannula 2.00 11/13/17 07:03 65 18 139/80 (99) 96 Nasal Cannula 2.00 11/13/17 06:32 16 99 Room Air 11/13/17 06:16 98.4 63 16 135/93 (107) 95 Physical Exam GENERAL: This is a well-nourished, elderly patient, in no apparent distress. SKIN: No rashes, ecchymoses or lesions. Cool and dry. HEAD: Atraumatic. Normocephalic. No temporal or scalp tenderness. EYES: Pupils equal round and reactive. Extraocular motions intact. No scleral icterus. No injection or drainage. ENT: Nose without bleeding, purulent drainage or septal hematoma. Throat without erythema, tonsillar hypertrophy or exudate. Uvula midline. Airway patent. NECK: Trachea midline. No JVD or lymphadenopathy. Supple, nontender, no meningeal signs. CARDIOVASCULAR: Regular rate and rhythm without murmurs, gallops, or rubs. RESPIRATORY: Clear to auscultation. Breath sounds equal bilaterally. No wheezes , rales, or rhonchi. GASTROINTESTINAL: Abdomen soft, non-tender, nondistended. No hepato-splenomegaly , or palpable masses. No guarding. MUSCULOSKELETAL: Extremities without clubbing, cyanosis, or edema. No joint tenderness, effusion, or edema noted. No calf tenderness. Negative Homans sign bilaterally. NEUROLOGICAL: Awake and alert. Cranial nerves II through XII intact. Motor and sensory grossly within normal limits. Five out of 5 muscle strength in all muscle groups. Normal speech. Laboratory Laboratory Tests Test 11/13/17 06:20 11/13/17 08:38 White Blood Count 11.2 Red Blood Count 4.03 Hemoglobin 12.8 Hematocrit 37.3 Mean Corpuscular Volume 92.6 Mean Corpuscular Hemoglobin 31.7 Mean Corpuscular Hemoglobin Concent 34.3 Red Cell Distribution Width 15.0 Platelet Count 244 Mean Platelet Volume 8.1 Neutrophils (%) (Auto) 88.0 Lymphocytes (%) (Auto) 7.4 Monocytes (%) (Auto) 3.9 Eosinophils (%) (Auto) 0.2 Basophils (%) (Auto) 0.5 Neutrophils # (Auto) 9.8 Lymphocytes # (Auto) 0.8 Monocytes # (Auto) 0.4 Eosinophils # (Auto) 0.0 Basophils # (Auto) 0.1 CBC Comment DIFF FINAL Differential Comment Prothrombin Time 10.8 Prothromb Time International Ratio 1.1 Activated Partial Thromboplast Time 26.5 Blood Urea Nitrogen 16 Creatinine 0.77 Random Glucose 125 Total Protein 7.3 Albumin 3.6 Calcium Level 9.0 Alkaline Phosphatase 139 Aspartate Amino Transf (AST/SGOT) 24 Alanine Aminotransferase (ALT/SGPT) 23 Total Bilirubin 0.9 Sodium Level 140 Potassium Level 3.6 Chloride Level 106 Carbon Dioxide Level 26.0 Anion Gap 8 Estimat Glomerular Filtration Rate 72 Total Creatine Kinase 146 Urine Color YELLOW Urine Turbidity CLEAR Urine pH 6.0 Urine Specific [place] 1.018 Urine Protein TRACE Urine Glucose (UA) NEG Urine Ketones NEG Urine Occult Blood TRACE Urine Nitrite NEG Urine Bilirubin NEG Urine Urobilinogen LESS THAN 2.0 Urine Leukocyte Esterase NEG Urine RBC 10 Urine WBC 1 Urine Squamous Epithelial Cells <1 Urine Mucus FEW Microscopic Urinalysis Comment CATH-CULT NOT IND Result Diagram: 11/13/1761911/13/17619 Imaging Last Impressions Hip and Pelvis X-Ray 11/13/17625 Signed Impressions: Service Date/Time: October 06:41 - CONCLUSION: Mild osteoarthritis without fracture. Esa Clemente MD Chest X-Ray 11/13/17 0626 Signed Impressions: Service Date/Time: October 06:41 - CONCLUSION: Subtle interstitial densities likely chronic. Esa Clemente MD Pelvis CT 11/13/17 0000 Signed Impressions: Service Date/Time: October 07:18 - CONCLUSION: 1. Acute fracture involving the greater trochanter of the right proximal femur. 2. Small focal disc bulge extending in the right neural foramen at L5-S1 which likely impinges upon the exiting right L5 nerve root. Clinical correlation is recommended to rule out right L5 radiculopathy. 3. Mild aneurysmal dilatation of the distal abdominal aorta measuring 2.7 x 2.6 cm. 4. Uncomplicated sigmoid diverticulosis. 5. Degenerative changes and scoliosis of lower lumbar spine. Yosi Tsang MD Head CT 11/13/17 0000 Signed Impressions: Service Date/Time: October 07:18 - CONCLUSION: 1. Stable noncontrast head CT. No acute intracranial abnormality is identified. 2. Stable chronic findings include generalized atrophy and chronic periventricular white matter low density characteristic of chronic microvascular ischemia. Carlos Gaytan MD Septic Shock Reassessment Septic shock perfusion: reassessment completed Caprini VTE Risk Assessment Caprini VTE Risk Assessment: Mod/High Risk (score >= 2) Caprini Risk Assessment Model Point Value = 1 Point Value = 2 Point Value = 3 Point Value = 5 Age 41-60 Minor surgery BMI > 25 kg/m2 Swollen legs Varicose veins or History of unexplained or recurrent spontaneous Oral contraceptives or hormone replacement Sepsis (< 1 month) Serious lung disease, including pneumonia (< 1 month) Abnormal pulmonary function Acute myocardial infarction Congestive heart failure (< 1 month) History of inflammatory bowel disease Medical patient at bed rest Age 61-74 Arthroscopic surgery Major open surgery (> 45 min) Laparoscopic surgery (> 45 min) Malignancy Confined to bed (> 72 hours) Immobilizing plaster cast Central venous access Age >= 75 History of VTE Family history of VTE Factor V Leiden Prothrombin [id number] Lupus anticoagulant Anticardiolipin antibodies Elevated serum homocysteine Heparin-induced thrombocytopenia Other congenital or acquired thrombophilia Stroke (< 1 month) Elective arthroplasty Hip, pelvis, or leg fracture Acute spinal cord injury (< 1 month) Prophylaxis Regimen Total Risk Factor Score Risk Level Prophylaxis Regimen 0-1 Low Early ambulation 2 Moderate Order ONE of the following: *Sequential Compression Device (SCD) *Heparin 5000 units SQ BID 3-4 Higher Order ONE of the following medications: *Heparin 5000 units SQ TID *Enoxaparin/Lovenox 40 mg SQ daily (WT < 150 kg, CrCl > 30 mL/min) *Enoxaparin/Lovenox 30 mg SQ daily (WT < 150 kg, CrCl > 10-29 mL/min) *Enoxaparin/Lovenox 30 mg SQ BID (WT < 150 kg, CrCl > 30 mL/min) AND/OR *Sequential Compression Device (SCD) 5 or more Highest Order ONE of the following medications: *Heparin 5000 units SQ TID (Preferred with Epidurals) *Enoxaparin/Lovenox 40 mg SQ daily (WT < 150 kg, CrCl > 30 mL/min) *Enoxaparin/Lovenox 30 mg SQ daily (WT < 150 kg, CrCl > 10-29 mL/min) *Enoxaparin/Lovenox 30 mg SQ BID (WT < 150 kg, CrCl > 30 mL/min) AND *Sequential Compression Device (SCD) Assessment and Plan Problem List: (1) Closed avulsion fracture of greater trochanter of right femur ICD Code: S72.111A - Displaced fracture of greater trochanter of right femur, initial encounter for closed fracture Status: Acute (2) Closed head injury ICD Code: S09.90XA - Unspecified injury of head, initial encounter Status: Acute Assessment and Plan 82 years old female with Closed Head injury s/p mechanical fall Head CT noted and review without any intracranial abnormality Chest xray noted and review by me without any cardiopulmonary abnormality Fall precautions Neuro check Fracture of the greater trochanteric right femur Pelvic CT noted and review by me with finding of the above mentioned fracture which is nonoperative, therefore will management conservatively PT consult to treat and eval Dementia, Hypertension, Hypothyroidism Resume outpatient medications DVT prophylaxis: B-SCDs Code Status Full code Discussed Condition With ED physician Physician Certification 2 Midnight Certification Type: Admission for Inpatient Services Order for Inpatient Services The services are ordered in accordance with Medicare regulations or non- Medicare payer requirements, as applicable. In the case of services not specified as inpatient-only, they are appropriately provided as inpatient services in accordance with the 2-midnight benchmark. Estimated LOS (days): 2 days is the estimated time the patient will need to remain in the hospital, assuming treatment plan goals are met and no additional complications. Post-Hospital Plan: Not yet determined Esa Hayes MD Nov 13, 2017 13:34
[2017-11-13] MEDS ORDERED: SODIUM CHLORIDE 0.9% FLUSH 10 ML FLUSH IV FLUSH PRN (13:45)
[2017-11-13] MEDS ORDERED: NALOXONE HCL 0.4 MG/ML AMP IV PUSH PRN (13:45)
[2017-11-13] MEDS ORDERED: PILL SPLITTER OTHER PRN (14:30)
[2017-11-13] MEDS ORDERED: ACETAMINOPHEN 325 MG TAB PO PRN (15:00)
[2017-11-13] MEDS ORDERED: ONDANSETRON HCL 4 MG/2 ML VIAL IVP PRN (15:00)
[2017-11-13] MEDS ORDERED: RESP: ALBUTEROL 2.5 MG/IPRATROPIUM 0.5 MG NEB (PRN) NEB (15:45)
[2017-11-13] MEDS ORDERED: ENALAPRILAT 2.5 MG/2 ML VIAL IV PUSH PRN (15:45)
[2017-11-13] MEDS: SODIUM CHLORIDE 0.9% FLUSH 10 ML FLUSH IV FLUSH SCH (20:03)
[2017-11-13] MEDS ORDERED: MAGNESIUM HYDROXIDE SUSP 30 ML CUP PO PRN (21:00)
[2017-11-14] VITALS: BP 151/72; PULSE 70; RESP 18; TEMP 98.3; O2SAT 99
[2017-11-14] MEDS: LEVOTHYROXINE SODIUM 75 MCG TAB PO SCH (05:33)
[2017-11-14 07:06] LABS: AUTOMATED NEUTROPHIL # 9.2 TH/MM3 (1.8-7.7); BASOPHIL % 0.3 % (0.0-2.0); EOSINOPHIL # 0.1 TH/MM3 (0-0.4); EOSINOPHIL % 0.7 % (0.0-4.0); HEMATOCRIT 36.8 % (35.0-46.0); HEMOGLOBIN 12.6 GM/DL (11.6-15.3); LYMPHOCYTE # 0.6 TH/MM3 (1.0-4.8); MEAN CELL VOLUME 92.7 FL (80.0-100.0); MEAN CORPUSCULAR HEMOGLOBIN 31.6 PG (27.0-34.0); MEAN CORPUSCULAR HGB CONC 34.1 % (32.0-36.0); MONO % 5.4 % (0.0-8.0); MONOCYTE # 0.6 TH/MM3 (0-0.9); NEUT % 87.6 % (16.0-70.0); PLATELET COUNT 230 TH/MM3 (150-450); RED BLOOD COUNT 3.97 MIL/MM3 (4.00-5.30); RED CELL DISTRIBUTION WIDTH 15.2 % (11.6-17.2); WHITE BLOOD COUNT 10.5 TH/MM3 (4.0-11.0)
[2017-11-14 07:29] LABS: ALBUMIN 3.2 GM/DL (3.4-5.0); AST (GOT) 21 U/L (15-37); BICARBONATE 24.2 MEQ/L (21.0-32.0); BLOOD UREA NITROGEN 15 MG/DL (7-18); CALCIUM 8.6 MG/DL (8.5-10.1); CHLORIDE 107 MEQ/L (98-107); CREATININE 0.65 MG/DL (0.50-1.00); GLOMERULAR FILTRATION RATE 87 ML/MIN (>89); GLUCOSE,RANDOM 96 MG/DL (74-106); SODIUM (NA) 139 MEQ/L (136-145)
[2017-11-14 07:31] LABS: ALT (GPT) 18 U/L (10-53)
[2017-11-14 07:33] LABS: ALKALINE PHOSPHATASE 122 U/L (45-117); TOTAL PROTEIN 6.9 GM/DL (6.4-8.2)
[2017-11-14 07:41] VITALS: BP 140/70; PULSE 69; RESP 18; TEMP 98.7; O2SAT 95
[2017-11-14] MEDS: SODIUM CHLORIDE 0.9% FLUSH 10 ML FLUSH IV FLUSH SCH ×2 (09:00→20:48)
[2017-11-14] MEDS ORDERED: PANTOPRAZOLE SOD 20 MG DELAYED RELEASE TAB PO PRN (09:00)
[2017-11-14] MEDS: DONEPEZIL HCL 5 MG TAB PO SCH (09:20)
[2017-11-14] MEDS: MEMANTINE HCL 5 MG TAB PO SCH (09:21)
[2017-11-14] MEDS: ACETAMINOPHEN 325 MG TAB PO PRN ×2 (09:21→20:53)
[2017-11-14] MEDS: amLODIPine BESYLATE 5 MG TAB PO SCH (09:21)
[2017-11-14] MEDS: SERTRALINE HCL 50 MG TAB PO SCH (09:23)
--- NOTE | 2017-11-14 10:30 | HHI.PR ---
Subjective Remarks Follow-up Fracture of the greater trochanteric right femur November 14, 2017-patient seen and examined, pleasantly confused. Although she denies any current pain,however per nurse report when patient is up and ambulate she grimaces Objective Vitals Vital Signs Date Time Temp Pulse Resp B/P (MAP) Pulse Ox O2 Delivery O2 Flow Rate FiO2 11/14/17 09:25 Nasal Cannula 2.00 11/14/17 07:41 98.7 69 18 140/70 (93) 95 11/14/17 00:00 98.3 70 18 151/72 (98) 99 11/13/17 20:03 Nasal Cannula 2.00 11/13/17 20:02 Nasal Cannula 2.00 11/13/17 20:00 99.0 67 18 149/74 (99) 97 11/13/17 17:40 Nasal Cannula 2.00 11/13/17 17:33 98.9 65 18 140/70 (93) 97 11/13/17 17:21 11/13/17 15:34 72 18 163/75 (104) 96 Nasal Cannula 2.00 11/13/17 11:20 64 18 151/72 (98) 94 Nasal Cannula 2.00 I/O 11/13/17 11/13/17 11/13/17 11/14/17 11/14/17 11/14/17 07:00 15:00 23:00 07:00 15:00 23:00 Intake Total 240 ml Balance 240 ml Intake Oral 240 ml # Voids 1 # Bowel Movements 0 Result Diagram: 11/14/17 0611/14/17622 Imaging Last Impressions Hip and Pelvis X-Ray 11/13/17625 Signed Impressions: Service Date/Time: October 06:41 - CONCLUSION: Mild osteoarthritis without fracture. Esa Clemente MD Chest X-Ray 11/13/17625 Signed Impressions: Service Date/Time: October 06:41 - CONCLUSION: Subtle interstitial densities likely chronic. Esa Clemente MD Pelvis CT 11/13/17 0000 Signed Impressions: Service Date/Time: October 07:18 - CONCLUSION: 1. Acute fracture involving the greater trochanter of the right proximal femur. 2. Small focal disc bulge extending in the right neural foramen at L5-S1 which likely impinges upon the exiting right L5 nerve root. Clinical correlation is recommended to rule out right L5 radiculopathy. 3. Mild aneurysmal dilatation of the distal abdominal aorta measuring 2.7 x 2.6 cm. 4. Uncomplicated sigmoid diverticulosis. 5. Degenerative changes and scoliosis of lower lumbar spine. Yosi Tsang MD Head CT 11/13/17 0000 Signed Impressions: Service Date/Time: October 07:18 - CONCLUSION: 1. Stable noncontrast head CT. No acute intracranial abnormality is identified. 2. Stable chronic findings include generalized atrophy and chronic periventricular white matter low density characteristic of chronic microvascular ischemia. Carlos Gaytan MD Objective Remarks GENERAL: NAD SKIN: Warm and dry. HEAD: Normocephalic. EYES: No scleral icterus. No injection or drainage. NECK: Supple, trachea midline. No JVD or lymphadenopathy. CARDIOVASCULAR: Regular rate and rhythm without murmurs, gallops, or rubs. RESPIRATORY: Breath sounds equal bilaterally. No accessory muscle use. GASTROINTESTINAL: Abdomen soft, non-tender, nondistended. MUSCULOSKELETAL: No cyanosis, or edema. [id number] intact BACK: Nontender without obvious deformity. No CVA tenderness. A/P Problem List: (1) Closed avulsion fracture of greater trochanter of right femur ICD Code: S72.111A - Displaced fracture of greater trochanter of right femur, initial encounter for closed fracture Status: Acute (2) Closed head injury ICD Code: S09.90XA - Unspecified injury of head, initial encounter Status: Acute Assessment and Plan 82 years old female with Closed Head injury s/p mechanical fall Head CT without any intracranial abnormality Chest xray without any cardiopulmonary abnormality Fall precautions Neuro check Fracture of the greater trochanteric right femur Pelvic CT noted and review by me with finding of the above mentioned fracture which is nonoperative, therefore will continue management conservatively PT to treat and eval Dementia, Hypertension, Hypothyroidism Continue outpatient medications DVT prophylaxis: Esa Wen MD Nov 14, 2017 10:30
[2017-11-14 12:00] VITALS: BP 124/58; PULSE 65; RESP 18; TEMP 97.8; O2SAT 92
[2017-11-14 15:54] VITALS: BP 119/63; PULSE 68; RESP 17; TEMP 98.2; O2SAT 98
[2017-11-14 19:57] VITALS: BP 129/69; PULSE 80; RESP 18; TEMP 99.1; O2SAT 93
--- NOTE | 2017-11-14 23:52 | EKG ---
Date Performed: 11/13/2017 Time Performed: 07:11:09 PTAGE: 82 years EKG: Sinus rhythm POSSIBLE LEFT ATRIAL ENLARGEMENT INCOMPLETE RIGHT BUNDLE BRANCH BLOCK NONSPECIFIC T-WAVE ABNORMALITY BORDERLINE ECG PREVIOUS TRACING : 12/09/2012 12.12 Since the previous tracing, no significant change noted DOCTOR: Ambrocio Babcock Interpretating Date/Time 11/14/2017 23:50:31
[2017-11-15] VITALS: BP 147/69; PULSE 61; RESP 20; TEMP 98; O2SAT 95
[2017-11-15] MEDS: LEVOTHYROXINE SODIUM 75 MCG TAB PO SCH (05:31)
[2017-11-15 07:22] VITALS: BP 139/71; PULSE 63; RESP 18; TEMP 97.9; O2SAT 95
[2017-11-15] MEDS: SERTRALINE HCL 50 MG TAB PO SCH (08:57)
[2017-11-15] MEDS: DONEPEZIL HCL 5 MG TAB PO SCH (08:58)
[2017-11-15] MEDS: MEMANTINE HCL 5 MG TAB PO SCH (08:58)
[2017-11-15] MEDS: amLODIPine BESYLATE 5 MG TAB PO SCH (08:58)
--- NOTE | 2017-11-15 11:47 | HHI.PR ---
Subjective Remarks Follow-up Fracture of the greater trochanteric right femur November 14, 2017-patient seen and examined, pleasantly confused. Although she denies any current pain,however per nurse report when patient is up and ambulate she grimaces November 15, 2017-patient seen and examined, stable in no acute event overnight. Objective Vitals Vital Signs Date Time Temp Pulse Resp B/P (MAP) Pulse Ox O2 Delivery O2 Flow Rate FiO2 11/15/17 07:22 97.9 63 18 139/71 (93) 95 11/15/17 00:00 98.0 61 20 147/69 (95) 95 11/14/17 21:46 Nasal Cannula 2.00 11/14/17 21:34 18 11/14/17 19:57 99.1 80 18 129/69 (89) 93 11/14/17 15:54 98.2 68 17 119/63 (81) 98 11/14/17 12:00 97.8 65 18 124/58 (80) 92 I/O 11/14/17 11/14/17 11/14/17 11/15/17 11/15/17 11/15/17 07:00 15:00 23:00 07:00 15:00 23:00 Intake Total 240 ml 240 ml Balance 240 ml 240 ml Intake Oral 240 ml 240 ml # Voids 1 2 # Bowel Movements 0 1 Result Diagram: 11/14/1762211/14/17622 Imaging Last Impressions Hip and Pelvis X-Ray 11/13/17625 Signed Impressions: Service Date/Time: October 06:41 - CONCLUSION: Mild osteoarthritis without fracture. Esa Clemente MD Chest X-Ray 11/13/17625 Signed Impressions: Service Date/Time: October 06:41 - CONCLUSION: Subtle interstitial densities likely chronic. Esa Clemente MD Pelvis CT 11/13/17 0000 Signed Impressions: Service Date/Time: October 07:18 - CONCLUSION: 1. Acute fracture involving the greater trochanter of the right proximal femur. 2. Small focal disc bulge extending in the right neural foramen at L5-S1 which likely impinges upon the exiting right L5 nerve root. Clinical correlation is recommended to rule out right L5 radiculopathy. 3. Mild aneurysmal dilatation of the distal abdominal aorta measuring 2.7 x 2.6 cm. 4. Uncomplicated sigmoid diverticulosis. 5. Degenerative changes and scoliosis of lower lumbar spine. Yosi Tsang MD Head CT 11/13/17 0000 Signed Impressions: Service Date/Time: October 07:18 - CONCLUSION: 1. Stable noncontrast head CT. No acute intracranial abnormality is identified. 2. Stable chronic findings include generalized atrophy and chronic periventricular white matter low density characteristic of chronic microvascular ischemia. Carlos Gaytan MD Objective Remarks GENERAL: NAD SKIN: Warm and dry. HEAD: Normocephalic. EYES: No scleral icterus. No injection or drainage. NECK: Supple, trachea midline. No JVD or lymphadenopathy. CARDIOVASCULAR: Regular rate and rhythm without murmurs, gallops, or rubs. RESPIRATORY: Breath sounds equal bilaterally. No accessory muscle use. GASTROINTESTINAL: Abdomen soft, non-tender, nondistended. MUSCULOSKELETAL: No cyanosis, or edema. [id number] intact BACK: Nontender without obvious deformity. No CVA tenderness. Procedures None A/P Problem List: (1) Closed avulsion fracture of greater trochanter of right femur ICD Code: S72.111A - Displaced fracture of greater trochanter of right femur, initial encounter for closed fracture Status: Acute (2) Closed head injury ICD Code: S09.90XA - Unspecified injury of head, initial encounter Status: Acute Assessment and Plan 82 years old female with Closed Head injury s/p mechanical fall Head CT without any intracranial abnormality Chest xray without any cardiopulmonary abnormality Fall precautions Neuro check Fracture of the greater trochanteric right femur Pelvic CT with finding of the above mentioned fracture which is nonoperative , therefore will continue management conservatively PT to treat and eval Dementia, Hypertension, Hypothyroidism Continue outpatient medications DVT prophylaxis: Shadi-Esa Ochoa MD Nov 15, 2017 11:47
--- NOTE | 2017-11-15 11:51 | HHI.DS ---
Discharge Summary Admission Date Nov 13, 2017 at 14:14 Discharge Date: Nov 15, 2017 Admitting Diagnosis (1) Closed avulsion fracture of greater trochanter of right femur ICD Code: S72.111A - Displaced fracture of greater trochanter of right femur, initial encounter for closed fracture Status: Acute (2) Closed head injury ICD Code: S09.90XA - Unspecified injury of head, initial encounter Status: Acute Procedures None Brief History - From Admission Due to patient dementia, although pleasantly confused, she is unable to provide any history, therefore the history is obtained from the EMR review below: "The patient is a 82-year-old female who presents to the emergency department via EMS from a long-term in [place], [place], after she was found on the floor. The patient apparently was found on the floor with a mattress on top of her according to EMS. The patient was noted to have a hematoma to the right side of the head as well as bruising to the right hip. The patient is normally ambulatory with a walker according to nursing staff, the patient is a limited historian with a history of dementia. The patient denies any headache, does complain of right hip pain with movement. She denies any previous injuries to the right hip. She denies any headache, neck pain, chest pain, shortness of breath, nausea, vomiting, or abdominal pain. She does note limited range of motion of the right hip secondary to pain. Symptoms are moderate." CBC/BMP: 11/14/17 0623 11/14/17 0623 Significant Findings Laboratory Tests Test 11/13/17 06:20 11/13/17 08:38 11/14/17 06:23 White Blood Count 11.2 TH/MM3 (4.0-11.0) Neutrophils (%) (Auto) 88.0 % (16.0-70.0) 87.6 % (16.0-70.0) Lymphocytes (%) (Auto) 7.4 % (9.0-44.0) 6.0 % (9.0-44.0) Neutrophils # (Auto) 9.8 TH/MM3 (1.8-7.7) 9.2 TH/MM3 (1.8-7.7) Lymphocytes # (Auto) 0.8 TH/MM3 (1.0-4.8) 0.6 TH/MM3 (1.0-4.8) Random Glucose 125 MG/DL (74-106) Alkaline Phosphatase 139 U/L (45-117) 122 U/L (45-117) Estimat Glomerular Filtration Rate 72 ML/MIN (>89) 87 ML/MIN (>89) Urine Occult Blood TRACE (NEG) Urine RBC 10 /hpf (0-3) Urine Mucus FEW /lpf (OCC) Red Blood Count 3.97 MIL/MM3 (4.00-5.30) Albumin 3.2 GM/DL (3.4-5.0) Imaging Last Impressions Hip and Pelvis X-Ray 11/13/17625 Signed Impressions: Service Date/Time: October 06:41 - CONCLUSION: Mild osteoarthritis without fracture. Esa Clemente MD Chest X-Ray 11/13/17625 Signed Impressions: Service Date/Time: October 06:41 - CONCLUSION: Subtle interstitial densities likely chronic. Esa Clemente MD Pelvis CT 11/13/17 0000 Signed Impressions: Service Date/Time: October 07:18 - CONCLUSION: 1. Acute fracture involving the greater trochanter of the right proximal femur. 2. Small focal disc bulge extending in the right neural foramen at L5-S1 which likely impinges upon the exiting right L5 nerve root. Clinical correlation is recommended to rule out right L5 radiculopathy. 3. Mild aneurysmal dilatation of the distal abdominal aorta measuring 2.7 x 2.6 cm. 4. Uncomplicated sigmoid diverticulosis. 5. Degenerative changes and scoliosis of lower lumbar spine. Yosi Tsang MD Head CT 11/13/17 0000 Signed Impressions: Service Date/Time: October 07:18 - CONCLUSION: 1. Stable noncontrast head CT. No acute intracranial abnormality is identified. 2. Stable chronic findings include generalized atrophy and chronic periventricular white matter low density characteristic of chronic microvascular ischemia. Carlos Gaytan MD PE at Discharge GENERAL: NAD SKIN: Warm and dry. HEAD: Normocephalic. EYES: No scleral icterus. No injection or drainage. NECK: Supple, trachea midline. No JVD or lymphadenopathy. CARDIOVASCULAR: Regular rate and rhythm without murmurs, gallops, or rubs. RESPIRATORY: Breath sounds equal bilaterally. No accessory muscle use. GASTROINTESTINAL: Abdomen soft, non-tender, nondistended. MUSCULOSKELETAL: No cyanosis, or edema. [id number] intact BACK: Nontender without obvious deformity. No CVA tenderness. Hospital Course While in hospital, patient was treated for: Closed Head injury s/p mechanical fall Head CT without any intracranial abnormality Chest xray without any cardiopulmonary abnormality Fall precautions Neuro check Fracture of the greater trochanteric right femur Pelvic CT with finding of the above mentioned fracture which is nonoperative , therefore she was treated conservatively with consultation to physical therapy , analgesic as needed. Dementia, Hypertension, Hypothyroidism Outpatient medications were resumed DVT prophylaxis: B-SCDs Pt Condition on Discharge: Good Discharge Disposition: Discharge to SNF Discharge Time: > 30 minutes Discharge Instructions DIET: Follow Instructions for: As Tolerated, No Restrictions Activities you can perform: Partial Weight Bearing Follow up Referrals: PCP Follow-up - 2-3 Days Continued Medications: Acetaminophen (Tylenol) 325 Mg Tab 650 MG PO Q6H PRN for pain in joint, TAB 0 Refills Alendronate (Alendronate) 70 Mg Tab 70 MG PO Q7D for Osteporosis Treatment, #4 TAB 0 Refills Amlodipine (Amlodipine) 2.5 Mg Tab 2.5 MG PO DAILY for Blood Pressure Management, #30 TAB 0 Refills Donepezil (Donepezil) 10 Mg Tab 10 MG PO DAILY for Dementia, #30 TAB 0 Refills Levothyroxine (Levothyroxine) 75 Mcg Tab 75 MCG PO DAILY for Thyroid, #30 TAB 0 Refills Meloxicam (Meloxicam) 7.5 Mg Tab 7.5 MG PO DAILY for Arthritis Pain, TAB 0 Refills Memantine (Memantine) 5 Mg Tab 5 MG PO DAILY for Alzheimer's Dementia, TAB 0 Refills Omeprazole (Omeprazole) 20 Mg Tab 20 MG PO DAILY PRN for HEARTBURN, #30 TAB 0 Refills Sertraline (Sertraline) 25 Mg Tab 25 MG PO DAILY, #30 TAB 0 Refills Esa Hayes MD Nov 15, 2017 11:51
[2017-11-15 12:00] VITALS: BP 151/72; PULSE 64; RESP 18; TEMP 97.3; O2SAT 96
[2017-11-15] MEDS: ACETAMINOPHEN 325 MG TAB PO PRN (13:03)
[2017-11-15 16:00] VITALS: BP 157/75; PULSE 68; RESP 16; TEMP 98.2; O2SAT 96
[2017-11-15 20:00] VITALS: BP 106/62; PULSE 67; RESP 18; TEMP 97.9; O2SAT 95
[2017-11-15] MEDS: SODIUM CHLORIDE 0.9% FLUSH 10 ML FLUSH IV FLUSH SCH (20:40)
[2017-11-15 23:30] VITALS: BP 142/75; PULSE 62; RESP 18; TEMP 98.1; O2SAT 95
[2017-11-16] MEDS: LEVOTHYROXINE SODIUM 75 MCG TAB PO SCH (07:30)
[2017-11-16 08:00] VITALS: BP 142/99; PULSE 71; RESP 18; TEMP 98.2; O2SAT 96
[2017-11-16] MEDS: SODIUM CHLORIDE 0.9% FLUSH 10 ML FLUSH IV FLUSH SCH (09:00)
[2017-11-16] MEDS: MEMANTINE HCL 5 MG TAB PO SCH (09:59)
[2017-11-16] MEDS: amLODIPine BESYLATE 5 MG TAB PO SCH (09:59)
[2017-11-16] MEDS: DONEPEZIL HCL 5 MG TAB PO SCH (09:59)
[2017-11-16] MEDS: SERTRALINE HCL 50 MG TAB PO SCH (10:00)
[2017-11-16 12:00] VITALS: BP 154/82; PULSE 68; RESP 18; TEMP 97.6; O2SAT 98
--- NOTE | 2017-11-16 12:20 | HHI.PR ---
Subjective Remarks Follow-up Fracture of the greater trochanteric right femur November 14, 2017-patient seen and examined, pleasantly confused. Although she denies any current pain,however per nurse report when patient is up and ambulate she grimaces November 15, 2017-patient seen and examined, stable in no acute event overnight. 11/16/2017-patient seen and examined, no change and stable. Afebrile Objective Vitals Vital Signs Date Time Temp Pulse Resp B/P (MAP) Pulse Ox O2 Delivery O2 Flow Rate FiO2 11/16/17 12:00 97.6 68 18 154/82 (106) 98 11/16/17 08:00 98.2 71 18 142/99 (113) 96 11/15/17 23:30 98.1 62 18 142/75 (97) 95 11/15/17 20:00 95 Room Air 11/15/17 20:00 97.9 67 18 106/62 (77) 95 11/15/17 16:00 98.2 68 16 157/75 (102) 96 I/O 11/15/17 11/15/17 11/15/17 11/16/17 11/16/17 11/16/17 07:00 15:00 23:00 07:00 15:00 23:00 Intake Total 240 ml 240 ml Balance 240 ml 240 ml Intake Oral 240 ml 240 ml # Voids 2 1 # Bowel Movements 1 0 Result Diagram: 11/14/1762211/14/17622 Imaging Last Impressions Hip and Pelvis X-Ray 11/13/17625 Signed Impressions: Service Date/Time: October 06:41 - CONCLUSION: Mild osteoarthritis without fracture. Esa Clemente MD Chest X-Ray 11/13/17625 Signed Impressions: Service Date/Time: October 06:41 - CONCLUSION: Subtle interstitial densities likely chronic. Esa Clemente MD Pelvis CT 11/13/17 0000 Signed Impressions: Service Date/Time: October 07:18 - CONCLUSION: 1. Acute fracture involving the greater trochanter of the right proximal femur. 2. Small focal disc bulge extending in the right neural foramen at L5-S1 which likely impinges upon the exiting right L5 nerve root. Clinical correlation is recommended to rule out right L5 radiculopathy. 3. Mild aneurysmal dilatation of the distal abdominal aorta measuring 2.7 x 2.6 cm. 4. Uncomplicated sigmoid diverticulosis. 5. Degenerative changes and scoliosis of lower lumbar spine. Yosi Tsang MD Head CT 11/13/17 0000 Signed Impressions: Service Date/Time: October 07:18 - CONCLUSION: 1. Stable noncontrast head CT. No acute intracranial abnormality is identified. 2. Stable chronic findings include generalized atrophy and chronic periventricular white matter low density characteristic of chronic microvascular ischemia. Carlos Gaytan MD Objective Remarks GENERAL: NAD SKIN: Warm and dry. HEAD: Normocephalic. EYES: No scleral icterus. No injection or drainage. NECK: Supple, trachea midline. No JVD or lymphadenopathy. CARDIOVASCULAR: Regular rate and rhythm without murmurs, gallops, or rubs. RESPIRATORY: Breath sounds equal bilaterally. No accessory muscle use. GASTROINTESTINAL: Abdomen soft, non-tender, nondistended. MUSCULOSKELETAL: No cyanosis, or edema. [id number] intact BACK: Nontender without obvious deformity. No CVA tenderness. Procedures None A/P Problem List: (1) Closed avulsion fracture of greater trochanter of right femur ICD Code: S72.111A - Displaced fracture of greater trochanter of right femur, initial encounter for closed fracture Status: Acute (2) Closed head injury ICD Code: S09.90XA - Unspecified injury of head, initial encounter Status: Acute Assessment and Plan 82 years old female with Closed Head injury s/p mechanical fall Head CT without any intracranial abnormality Chest xray without any cardiopulmonary abnormality Fall precautions Neuro check Fracture of the greater trochanteric right femur Pelvic CT with finding of the above mentioned fracture which is nonoperative , therefore will continue management conservatively Partial WB on RLE PT to treat and eval Dementia, Hypertension, Hypothyroidism Continue outpatient medications DVT prophylaxis: B-SCDs Problem Qualifiers (1) Closed avulsion fracture of greater trochanter of right femur: Qualified Codes: S72.111A - Displaced fracture of greater trochanter of right femur, initial encounter for closed fracture (2) Closed head injury: Qualified Codes: S09.90XA - Unspecified injury of head, initial encounter Esa Hayes MD Nov 16, 2017 12:20
== END 2017-11-16 17:11 | DRG 536 ==
LOC: NEPE 06:10 → NEDA 14:14 → N06B 18:40 → N06A 11-14 13:17
PROVIDERS: ADMIT Hospitalist; ATTEND Hospitalist
DX: S72.111A Displaced fracture of greater trochanter of right femur, initial encounter for closed fracture (principal); G30.9 Alzheimer's disease, unspecified; F02.80 Dementia in other diseases classified elsewhere, unspecified severity, without behavioral disturbance, psychotic disturbance, mood disturbance, and anxiety; I10 Essential (primary) hypertension; S00.83XA Contusion of other part of head, initial encounter; E03.9 Hypothyroidism, unspecified; W19.XXXA Unspecified fall, initial encounter; Y92.099 Unspecified place in other non-institutional residence as the place of occurrence of the external cause; Z88.5 Allergy status to narcotic agent; Z88.6 Allergy status to analgesic agent
CPT/HCPCS: 70450; 71045; 72192; 73502; 80053; 81001; 82550; 85025; 85610; 85730; 86850; 86900; 86901; 93005; 96374; 96375; J2270; J2405